=== PATIENT | female | born 1990 | race Caucasian/White ===

== ENCOUNTER 2023-07-01 15:42 | Emergency (ER) | payer MEDICAID | END 2023-07-01 17:09 | disposition home or self-care (01) | LOC: LL.ED 15:42 | DX: S99.911A Unspecified injury of right ankle, initial encounter (principal); Z91.048 Other nonmedicinal substance allergy status; Z88.0 Allergy status to penicillin; Z88.6 Allergy status to analgesic agent; Z91.040 Latex allergy status; Z79.51 Long term (current) use of inhaled steroids; Z79.899 Other long term (current) drug therapy; Z87.891 Personal history of nicotine dependence; X50.1XXA Overexertion from prolonged static or awkward postures, initial encounter | CPT/HCPCS: 73610-RT; 99283 ==

== ENCOUNTER 2023-12-08 09:10 | Emergency (ER) | payer MEDICAID ==
[2023-12-08] MEDS: Dexamethasone 10 MG/ML SDV IM ONE (09:48)
[2023-12-08] MEDS: Albuterol/Ipratropium 3.0-0.5 MG/3 ML Neb Soln NEB ONE (09:48)
[2023-12-08 10:01] LABS: BASOPHILS ABSOLUTE AUTO 0.01 K/uL (0.00-0.20); BASOPHILS PERCENT AUTO 0.2 % (0.0-2.0); EOSINOPHILS ABSOLUTE AUTO 0.14 K/uL (0.00-0.50); EOSINOPHILS PERCENT AUTO 2.3 % (0.0-5.0); HEMATOCRIT 37.2 % (34.0-46.0); HEMOGLOBIN 12.1 g/dL (11.7-15.5); LYMPHOCYTES PERCENT AUTO 28.5 % (10.0-50.0); MEAN CORPUSCULAR HEMOGLOBIN 29.2 pg (28.2-33.3); MEAN CORPUSCULAR HGB CONC 32.5 g/dL (31.7-36.0); MEAN CORPUSCULAR VOLUME 89.9 fL (84.0-98.0); MONOCYTES ABSOLUTE AUTO 0.39 K/uL (0.00-1.00); MONOCYTES PERCENT AUTO 6.5 % (2.0-14.0); NEUTROPHILS ABSOLUTE AUTO 3.72 K/uL (1.40-7.00); NEUTROPHILS PERCENT AUTO 62.5 % (45.0-80.0); PLATELET COUNT,PLT 308 K/uL (150-350); RED BLOOD CELL COUNT 4.14 M/uL (3.77-5.09); RED CELL DISTRIBUTION WIDTH 12.8 % (11.2-14.1)
[2023-12-08 10:28] LABS: ALBUMIN 3.9 g/dL (3.4-5.0); ANION GAP 6.6 meq/L (7-15); BILIRUBIN TOTAL 0.4 mg/dL (0.2-1.0); CALCIUM 8.9 mg/dL (8.5-10.1); CARBON DIOXIDE,CO2 25.4 mmol/L (21.0-32.0); CREATININE 0.71 mg/dL (0.51-1.17); EST CRCL DRUG DOSING (CG) 86.63 mL/min; POTASSIUM,K 4.2 mmol/L (3.5-5.1); PROTEIN TOTAL,TP 7.3 g/dL (6.4-8.2)
== END 2023-12-08 10:42 | disposition home or self-care (01) ==
LOC: LL.ED 09:10
DX: J20.9 Acute bronchitis, unspecified (principal); R05.9 Cough, unspecified; R68.83 Chills (without fever); Z79.899 Other long term (current) drug therapy; Z88.1 Allergy status to other antibiotic agents; Z88.6 Allergy status to analgesic agent; Z91.040 Latex allergy status; Z91.048 Other nonmedicinal substance allergy status
CPT/HCPCS: 36415; 71046; 80053; 85025; 87635; 94640; 96372; 99285; J1100; 99283; J7620-GY; U0002